=== PATIENT | male | born 1955 | race Caucasian/White ===

== ENCOUNTER 2017-03-23 02:27 | Emergency (ER) | payer OTHER, BC ==
[2017-03-23] MEDS ORDERED: Diphtheria,Pertussis(Acell),Tetanus Vaccine 0.5 ML SDV IM ONE (03:24)
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
--- NOTE | 2017-03-23 17:46 | CR ---
Chest: Portable view of the chest was obtained. Comparison: No prior chest x-ray. Heart size and mediastinum are normal. Lungs are clear. Bony structures are grossly intact. Impression: 1. Nothing acute is identified on portable chest x-ray. Diagnostic code #1
== END 2017-03-23 04:45 ==
LOC: JD.ED 02:27
DX: T20.20XA Burn of second degree of head, face, and neck, unspecified site, initial encounter (principal); T23.241A Burn of second degree of multiple right fingers (nail), including thumb, initial encounter; J45.909 Unspecified asthma, uncomplicated; F17.210 Nicotine dependence, cigarettes, uncomplicated; Z79.899 Other long term (current) drug therapy; Z23 Encounter for immunization; W40.1XXA Explosion of explosive gases, initial encounter
CPT/HCPCS: 36415; 71045; 80053; 85025; 90471; 90715; 99285; G0390